=== PATIENT | female | born 1960 | race African-American/Black ===

== ENCOUNTER 2017-06-27 08:33 | Emergency (ER) | payer OTHER ==
[~2017-06-27] VITALS: Ht 172.7 cm; Wt 127.0 kg
[~2017-06-27 08:33] MED LIST: AZEL137S6; CALCCAP7; CARI-277; CARI-316 PO; CETI10CH3; CYAN100022; FLUT0.0531; GUAI600T23; HYDRCRY2; LISI40TA; MELO1TAB56; TRIA25CA; [UNRECOGNIZED DRUG - CODE] PO
[2017-06-27 09:51] VITALS: BP 138/88
[2017-06-27 10:13] LABS: Basophils # (auto) 0.1 uL; Basophils % (auto) 1.2 % (0.0-2.0); Eosinophils # (auto) 0.2 uL; Eosinophils % (auto) 3.3 % (0.0-7.0); Hematocrit 35.3 % (36.0-46.0); Hemoglobin 11.7 g/dL (12.2-16.2); Lymphocytes # (auto) 2.2 uL; Lymphocytes % (auto) 37.7 % (10.0-50.0); Mean Corpuscular Volume 93.9 fL (80.0-100.0); Monocytes # (auto) 0.4 uL; Monocytes % (auto) 7.2 % (0.0-12.0); Neutrophils # (auto) 2.9 uL; Neutrophils % (auto) 50.6 % (37.0-80.0); Platelet Count (auto) 315 10^3/uL (140-450); Red Blood Cells 3.76 10^6/uL (4.0-5.20); Red Cell Distribution Width 15.2 % (11.8-14.3); White Blood Cell 5.8 10^3/uL (4.4-10.8)
[2017-06-27 10:43] LABS: Alanine Aminotransferase 21 U/L (13-56); Albumin 3.9 g/dL (3.4-5.0); Alkaline Phosphatase 172 U/L (45-117); Anion Gap 8 (5-15); Aspartate Aminotransferase 23 U/L (15-37); BUN/Creatinine Ratio 14.4; Bilirubin, Total 0.3 mg/dL (0.2-1.0); Blood Urea Nitrogen 16 mg/dL (7-18); Calcium 8.7 mg/dL (8.5-10.1); Carbon Dioxide 23 mmol/L (21-32); Chloride 106 mmol/L (98-107); GFR African American 65 mL/min; GFR Non-African American 54 mL/min; Glucose 78 mg/dL (74-106); Magnesium 2.6 mg/dL (1.6-2.6); Potassium 4.6 mmol/L (3.5-5.1); Sodium 137 mmol/L (136-145); Total Protein 8.4 g/dL (6.4-8.2)
[2017-06-27 11:44] LABS: Urine Bacteria FEW /hpf (None Seen); Urine Blood Negative /uL (Negative); Urine Specific Gravity 1.009 (1.001-1.035); Urine WBC 3 /hpf (0 - 5)
[2017-06-27] MEDS ORDERED: PROMETHAZINE HCL 25 MG/ML 1ML IV ONE (12:00)
[2017-06-27] MEDS ORDERED: KETOROLAC TROMETH 30 MG/ML 1ML VIAL IV ONE (12:00)
== END 2017-06-27 14:17 | disposition home or self-care (01) ==
LOC: ER 08:33
DX: R07.89 Other chest pain (principal); N39.0 Urinary tract infection, site not specified; M54.12 Radiculopathy, cervical region; E78.5 Hyperlipidemia, unspecified; I10 Essential (primary) hypertension; Z98.51 Tubal ligation status; Z88.1 Allergy status to other antibiotic agents
CPT/HCPCS: 36415; 71046; 72125; 80053; 81001; 81002; 83735; 83880; 84484; 85025; 93005; 94761; 96374; 96375; 99285; J1885; J2550

== ENCOUNTER 2017-11-05 13:01 | Inpatient (IN) | payer OTHER ==
[~2017-11-05] VITALS: Ht 172.7 cm; Wt 134.3 kg
[2017-11-05] MEDS ORDERED: CLINDAMYCIN 600MG IV 50 ML IV ONE (13:45)
[2017-11-05] MEDS ORDERED: ONDANSETRON HCL 4 MG/2 ML VIAL IV ONE (14:45)
[2017-11-05] MEDS ORDERED: MORPHINE SULF INJ 2 MG/ML SYRINGE 1ML IV ONE (14:45)
[2017-11-05] MEDS: SODIUM CHLORIDE 0.9% 1,000 ML IV SCH (16:50)
[2017-11-05 16:52] LABS: Basophils # (auto) 0 uL; Basophils % (auto) 0.4 % (0.0-2.0); Eosinophils # (auto) 0.1 uL; Eosinophils % (auto) 1.4 % (0.0-7.0); Hematocrit 33.9 % (36.0-46.0); Hemoglobin 11.1 g/dL (12.2-16.2); Lymphocytes # (auto) 1.4 uL; Lymphocytes % (auto) 16.3 % (10.0-50.0); Mean Corpuscular Hemoglobin 30.3 pg (28.0-32.0); Mean Corpuscular Hgb Conc. 32.9 g/dL (32.0-36.0); Monocytes # (auto) 0.5 uL; Monocytes % (auto) 6.2 % (0.0-12.0); Neutrophils # (auto) 6.5 uL; Neutrophils % (auto) 75.7 % (37.0-80.0); Platelet Count (auto) 263 10^3/uL (140-450); Red Blood Cells 3.68 10^6/uL (4.0-5.20); Red Cell Distribution Width 14.2 % (11.8-14.3); White Blood Cell 8.6 10^3/uL (4.4-10.8)
[2017-11-05 16:58] LABS: Albumin 3.3 g/dL (3.4-5.0); BUN/Creatinine Ratio 15.1; Bilirubin, Total 0.3 mg/dL (0.2-1.0); Calcium 8.8 mg/dL (8.5-10.1); Total Protein 7.9 g/dL (6.4-8.2)
[2017-11-05] MEDS ORDERED: ACETAMINOPHEN 500 MG TAB PO PRN (17:00)
[2017-11-05] MEDS ORDERED: LACTULOSE 20Gm/30ML SOLN PO PRN (17:00)
[2017-11-05] MEDS ORDERED: VANCOMYCIN PER PHARMACY 0 MG IV SCH (17:00)
[2017-11-05] MEDS ORDERED: NITROGLYCERIN 0.4 MG SL TAB SL PRN (17:00)
[2017-11-05] MEDS ORDERED: MORPHINE SULF INJ 2 MG/ML SYRINGE 1ML IV PRN ×2 (17:00)
[2017-11-05] MEDS ORDERED: VANCOMYCIN 1GM/250ML 250 ML IV ONE (17:00)
[2017-11-05] MEDS ORDERED: PROMETHAZINE HCL 25 MG/ML 1ML IV PRN (17:00)
[2017-11-05] MEDS ORDERED: TEMAZEPAM 15 MG CAP PO PRN (17:00)
[2017-11-05] MEDS ORDERED: LORazepam 0.5 MG TAB PO PRN (17:00)
[2017-11-05] MEDS ORDERED: ENOXAPARIN SOD 40 MG/0.4 ML SYRINGE SC SCH (17:10)
[2017-11-05] MEDS: PANTOPRAZOLE 40 MG TAB PO SCH (17:44)
[2017-11-05] MEDS ORDERED: LEVOFLOXACIN 500MG 100 ML IV ONE (18:15)
[2017-11-05 18:30] VITALS: BP 135/79
[2017-11-05] MEDS ORDERED: DEXTROSE (50%) 50ML SYRG IV PRN (19:00)
[2017-11-05] MEDS: HYDROcodone-ACET 5/325MG TAB PO PRN (20:51)
[2017-11-05 22:00] VITALS: BP 135/79
[2017-11-05] MEDS ORDERED: CYAN1TAB14 PO (23:10)
[2017-11-05] MEDS ORDERED: VENL75TA PO (23:10)
[2017-11-05] MEDS ORDERED: MONT5CHW17 PO (23:10)
[2017-11-05] MEDS ORDERED: ESZO3TAB53 PO (23:10)
[2017-11-05] MEDS ORDERED: GUAI600T23 PO (23:10)
[2017-11-05] MEDS ORDERED: BLAC20TA PO (23:10)
[2017-11-05] MEDS ORDERED: CHOL200021 PO (23:10)
[2017-11-05] MEDS ORDERED: CETI1TAB36 PO (23:10)
[2017-11-05] MEDS ORDERED: TRAZ-181 PO (23:10)
[2017-11-05] MEDS ORDERED: ATE50T PO (23:10)
[2017-11-05] MEDS ORDERED: FURO20TA3 PO (23:10)
[2017-11-05] MEDS ORDERED: ASPI-231 PO (23:10)
[2017-11-05] MEDS ORDERED: ALBUAER3 IN (23:10)
[2017-11-05] MEDS ORDERED: LISI40TA PO (23:10)
[2017-11-05] MEDS ORDERED: OMEG100078 PO (23:10)
[2017-11-05] MEDS: ACCU-CHEK COMFORT CURVE STRIP VI SCH (23:25)
[2017-11-06] MEDS: VANCOMYCIN 1GM/250ML 250 ML IV SCH ×3 (00:27→17:34)
[2017-11-06] MEDS: SODIUM CHLORIDE 0.9% 1,000 ML IV SCH ×2 (03:42→15:26)
[2017-11-06 05:00] VITALS: BP 137/75
[2017-11-06 06:25] LABS: Basophils # (auto) 0 uL; Basophils % (auto) 0.3 % (0.0-2.0); Eosinophils # (auto) 0.1 uL; Eosinophils % (auto) 2.2 % (0.0-7.0); Hematocrit 32.6 % (36.0-46.0); Hemoglobin 11.1 g/dL (12.2-16.2); Lymphocytes # (auto) 1.2 uL; Lymphocytes % (auto) 20.9 % (10.0-50.0); Mean Corpuscular Hemoglobin 31.2 pg (28.0-32.0); Mean Corpuscular Hgb Conc. 33.9 g/dL (32.0-36.0); Mean Corpuscular Volume 91.9 fL (80.0-100.0); Monocytes # (auto) 0.6 uL; Monocytes % (auto) 10.9 % (0.0-12.0); Neutrophils # (auto) 3.8 uL; Neutrophils % (auto) 65.7 % (37.0-80.0); Nucleated Red Blood Cells % 0.1 %; Platelet Count (auto) 252 10^3/uL (140-450); Red Blood Cells 3.55 10^6/uL (4.0-5.20); Red Cell Distribution Width 13.8 % (11.8-14.3); White Blood Cell 5.8 10^3/uL (4.4-10.8)
[2017-11-06] MEDS: ACCU-CHEK COMFORT CURVE STRIP VI SCH ×3 (06:25→18:00)
[2017-11-06 08:00] VITALS: BP 135/74
[2017-11-06] MEDS: HYDROcodone-ACET 5/325MG TAB PO PRN (09:25)
[2017-11-06] MEDS ORDERED: ENOXAPARIN SOD 40 MG/0.4 ML SYRINGE SC SCH (10:00)
[2017-11-06] MEDS ORDERED: LEVOFLOXACIN 500MG 100 ML IV SCH (10:00)
[2017-11-06] MEDS: PANTOPRAZOLE 40 MG TAB PO SCH (10:46)
[2017-11-06 12:00] VITALS: BP 139/76
[2017-11-06 17:00] VITALS: BP 146/104
[2017-11-06] MEDS ORDERED: CLIN1CAP4 PO (17:31)
[2017-11-06 18:02] VITALS: BP 146/104
[2017-11-06 18:17] VITALS: BP 146/104
== END 2017-11-06 19:02 | disposition home health service (06) | DRG 603 ==
LOC: ER 13:01 → TELE 13:02 → TELE-WESTW 19:30
PROVIDERS: ADMIT Internal Medicine; ATTEND Internal Medicine
DX: L03.116 Cellulitis of left lower limb (principal); Z68.42 Body mass index [BMI] 45.0-49.9, adult; M10.9 Gout, unspecified; I10 Essential (primary) hypertension; J45.909 Unspecified asthma, uncomplicated; E66.01 Morbid (severe) obesity due to excess calories; M65.9 Synovitis and tenosynovitis, unspecified; R73.9 Hyperglycemia, unspecified; D64.9 Anemia, unspecified; J44.9 Chronic obstructive pulmonary disease, unspecified; F32.9 Major depressive disorder, single episode, unspecified; M19.90 Unspecified osteoarthritis, unspecified site; E78.5 Hyperlipidemia, unspecified; Z82.49 Family history of ischemic heart disease and other diseases of the circulatory system; Z88.1 Allergy status to other antibiotic agents; Z79.899 Other long term (current) drug therapy; Z98.51 Tubal ligation status
CPT/HCPCS: 36415; 73700; 80053; 80061; 80202; 82565; 82962; 83036; 85025; 85652; 87040; 93971; 94761; 96361; 96365; 96367; 96368; 96372; 96375; J1956; J2405; J3490

== ENCOUNTER 2018-04-25 21:52 | Emergency (ER) | payer OTHER ==
[~2018-04-25] VITALS: Ht 170.2 cm; Wt 117.9 kg
[~2018-04-25 21:52] MED LIST changes: +ALBUAER3 IN; +ASPI-231 PO; +ATE50T PO; -CALCCAP7; -CARI-277; -CARI-316 PO; -CETI10CH3; +CETI1TAB36 PO; +CHOL200021 PO; +CLIN1CAP4 PO; -CYAN100022; +CYAN1TAB14 PO; +ESZO3TAB53 PO; +FURO20TA3 PO; -GUAI600T23; +GUAI600T23 PO; -HYDRCRY2; -LISI40TA; +LISI40TA PO; -MELO1TAB56; +MONT5CHW17 PO; +OMEG100078 PO; +TRAZ-181 PO; -TRIA25CA; +VENL75TA PO; -[UNRECOGNIZED DRUG - CODE] PO
[2018-04-25 22:05] VITALS: BP 150/76
[2018-04-25] MEDS ORDERED: KETOROLAC TROMETH 60MG/2ML VIAL IM ONE (23:30)
[2018-04-25] MEDS ORDERED: methylPREDNISolone SOD SUCC 125 MG/2 ML VL IM ONE (23:30)
== END 2018-04-26 00:22 | disposition home or self-care (01) ==
LOC: ER 21:52 → EDBD 21:52 → ER 04-26 00:22
DX: M25.561 Pain in right knee (principal); M25.562 Pain in left knee; J45.909 Unspecified asthma, uncomplicated; I10 Essential (primary) hypertension; E78.5 Hyperlipidemia, unspecified; Z98.51 Tubal ligation status; Z79.899 Other long term (current) drug therapy; Z88.1 Allergy status to other antibiotic agents; W06.XXXA Fall from bed, initial encounter; Y93.89 Activity, other specified; Y99.8 Other external cause status; Y92.89 Other specified places as the place of occurrence of the external cause
CPT/HCPCS: 73562; 96372; 99283; J1885; J2930

== ENCOUNTER 2022-03-26 16:40 | Inpatient (IN) | payer OTHER ==
[~2022-03-26] VITALS: Ht 172.7 cm; Wt 135.0 kg
[~2022-03-26 16:40] MED LIST changes: -ASPI-231 PO; +ASPI1TAB20 PO; -CLIN1CAP4 PO; +CLIN300C8 PO; -LISI40TA PO; +LISI40TA11 PO; -MONT5CHW17 PO; +MONT5CHW23 PO; +VENL1TAB99 PO; -VENL75TA PO
[2022-03-26] MEDS ORDERED: LORazepam 0.5 MG TAB PO ONE (21:00)
[2022-03-26 22:16] LABS: Basophils # (auto) 0.1 10 ^3/uL (0-0.2); Basophils % (auto) 0.8 % (0.0-2.0); Eosinophils # (auto) 0.3 10 ^3/uL (0-0.8); Eosinophils % (auto) 4.6 % (0.0-7.0); Hematocrit 38.5 % (36.0-46.0); Hemoglobin 12.9 g/dL (12.2-16.2); Lymphocytes # (auto) 2.9 10 ^3/uL (0.4-5.4); Mean Corpuscular Hgb Conc. 33.5 g/dL (32.0-36.0); Mean Corpuscular Volume 95.6 fL (80.0-100.0); Monocytes # (auto) 0.5 10 ^3/uL (0-1.3); Monocytes % (auto) 6.8 % (0.0-12.0); Neutrophils # (auto) 3.1 10 ^3/uL (1.6-8.6); Neutrophils % (auto) 44.8 % (37.0-80.0); Nucleated Red Blood Cells % 0.1 %; Red Blood Cells 4.03 10^6/uL (4.0-5.20); Red Cell Distribution Width 13.5 % (11.8-14.3); White Blood Cell 6.8 10^3/uL (4.4-10.8)
[2022-03-26 22:31] LABS: Albumin 4.2 g/dL (3.4-5.0); Anion Gap 10 (5-15); Aspartate Aminotransferase 24 U/L (15-37); BUN/Creatinine Ratio 18.5; Blood Urea Nitrogen 17 mg/dL (7-18); Calcium 9.5 mg/dL (8.5-10.1); Carbon Dioxide 23 mmol/L (21-32); Chloride 109 mmol/L (98-107); GFR African American 80 mL/min; GFR Non-African American 66 mL/min; Glucose 98 mg/dL (74-106); Sodium 142 mmol/L (136-145)
[2022-03-26 22:34] LABS: Alanine Aminotransferase 25 U/L (13-56); Alkaline Phosphatase 139 U/L (45-117); Bilirubin, Total 0.3 mg/dL (0.2-1.0); Total Protein 8.2 g/dL (6.4-8.2)
[2022-03-26 23:30] VITALS: BP 141/77
[2022-03-26] MEDS ORDERED: TEMAZEPAM 15 MG CAP PO PRN (23:30)
[2022-03-26] MEDS ORDERED: ACETAMINOPHEN 325 MG TAB PO PRN (23:30)
[2022-03-26] MEDS ORDERED: MORPHINE SULFATE INJ 2 MG/ml SYRG IV PRN (23:30)
[2022-03-26] MEDS ORDERED: ALBUTEROL SULF 2.5 MG/0.5ML(0.5%) NEB SOLN NEB PRN (23:30)
[2022-03-26] MEDS ORDERED: ONDANSETRON HCL 4 MG/2 ML VIAL IV PRN (23:30)
[2022-03-26] MEDS ORDERED: NITROGLYCERIN 0.4 MG SL TAB SL PRN (23:30)
[2022-03-27] VITALS (7 sets, daily range): BP systolic 162–195; BP diastolic 74–93
[2022-03-27 06:08] LABS: Basophils # (auto) 0.1 10 ^3/uL (0-0.2); Eosinophils # (auto) 0.3 10 ^3/uL (0-0.8); Eosinophils % (auto) 4.9 % (0.0-7.0); Hematocrit 35.4 % (36.0-46.0); Hemoglobin 11.9 g/dL (12.2-16.2); Lymphocytes # (auto) 2.2 10 ^3/uL (0.4-5.4); Lymphocytes % (auto) 40.5 % (10.0-50.0); Mean Corpuscular Hemoglobin 31.8 pg (28.0-32.0); Mean Corpuscular Hgb Conc. 33.5 g/dL (32.0-36.0); Mean Corpuscular Volume 94.8 fL (80.0-100.0); Monocytes # (auto) 0.4 10 ^3/uL (0-1.3); Neutrophils # (auto) 2.5 10 ^3/uL (1.6-8.6); Neutrophils % (auto) 45.6 % (37.0-80.0); Nucleated Red Blood Cells % 0.1 %; Red Blood Cells 3.73 10^6/uL (4.0-5.20); Red Cell Distribution Width 13.7 % (11.8-14.3); White Blood Cell 5.4 10^3/uL (4.4-10.8)
[2022-03-27 06:27] LABS: Potassium 3.7 mmol/L (3.5-5.1)
[2022-03-27 06:32] LABS: Calcium 9.2 mg/dL (8.5-10.1)
[2022-03-27] MEDS: ENOXAPARIN SOD 40 MG/0.4 ML SYRINGE SC SCH (09:37)
[2022-03-27] MEDS: ASPirin 81 mg TAB PO SCH (09:37)
[2022-03-27] MEDS: ATENOLOL 50 MG TAB PO SCH (09:38)
[2022-03-27] MEDS ORDERED: FUROSEMIDE 20 MG TAB PO SCH (10:00)
[2022-03-27] MEDS ORDERED: LISINOPRIL 20 MG TAB PO SCH (10:00)
[2022-03-27] MEDS ORDERED: CELE100C82 PO (10:28)
[2022-03-27] MEDS ORDERED: HYDR-4795 PO (10:28)
[2022-03-27] MEDS ORDERED: ESCI-34 PO (10:28)
[2022-03-27] MEDS ORDERED: BUSP10TA90 PO (10:28)
[2022-03-27] MEDS ORDERED: ALLO100T PO (10:28)
[2022-03-27] MEDS ORDERED: amLODIPine BESYLATE 5 MG TAB PO ONE (16:15)
[2022-03-27] MEDS ORDERED: amLODIPine BESYLATE 5 MG TAB PO SCH (16:15)
[2022-03-27] MEDS ORDERED: AMLO-496 PO (17:06)
[2022-03-27] MEDS ORDERED: LISINOPRIL 20 MG TAB PO ONE (19:00)
[2022-03-27] MEDS: hydrALAZINE HCL 20 MG/ML VL IV PRN (20:05)
[2022-03-27] MEDS ORDERED: LABETALOL HCL 5 MG/ML 4ML SYRINGE IV PRN (21:30)
[2022-03-27] MEDS: VENLAFAXINE HCL 37.5MG TABLET PO SCH (22:47)
[2022-03-28 05:00] VITALS: BP 147/72
[2022-03-28] MEDS ORDERED: diphenhdrAMINE HCL 50 MG/1 ML VL IV ONE (07:15)
[2022-03-28] MEDS ORDERED: methylPREDNISolone SOD SUCC 125 MG/2 ML VL IV ONE ×2 (07:15→11:45)
[2022-03-28 08:48] VITALS: BP 180/91
[2022-03-28] MEDS ORDERED: LISINOPRIL 20 MG TAB PO SCH (10:00)
[2022-03-28] MEDS: ASPirin 81 mg TAB PO SCH (10:15)
[2022-03-28] MEDS: ENOXAPARIN SOD 40 MG/0.4 ML SYRINGE SC SCH (10:15)
[2022-03-28] MEDS: ATENOLOL 50 MG TAB PO SCH (10:15)
[2022-03-28] MEDS: hydrALAZINE HCL 25 MG TAB PO SCH ×3 (10:16→22:03)
[2022-03-28 12:31] VITALS: BP 140/82
[2022-03-28] MEDS ORDERED: HYDR25TA87 PO (16:11)
[2022-03-28] MEDS ORDERED: METH4PAK PO (16:13)
[2022-03-28 16:34] VITALS: BP 189/90
[2022-03-28] MEDS: hydrALAZINE HCL 20 MG/ML VL IV PRN (17:54)
[2022-03-28 22:00] VITALS: BP 185/81
[2022-03-28] MEDS: VENLAFAXINE HCL 37.5MG TABLET PO SCH (22:04)
[2022-03-29 05:00] VITALS: BP 155/79
[2022-03-29] MEDS: hydrALAZINE HCL 25 MG TAB PO SCH (05:23)
[2022-03-29 08:55] VITALS: BP 143/77
[2022-03-29] MEDS: ENOXAPARIN SOD 40 MG/0.4 ML SYRINGE SC SCH (09:38)
[2022-03-29] MEDS: ATENOLOL 50 MG TAB PO SCH (09:38)
[2022-03-29] MEDS: ASPirin 81 mg TAB PO SCH (09:38)
[2022-03-29 10:48] VITALS: BP 143/77
== END 2022-03-29 11:29 | disposition home health service (06) | DRG 305 ==
LOC: EDUNIT# 16:40 → EDBD 16:40 → ER 16:40 → TELE 23:29 → TELE-WESTW 03-27 08:08
PROVIDERS: ADMIT Nurse Practitioner; ATTEND Internal Medicine
DX: I16.9 Hypertensive crisis, unspecified (principal); Z68.42 Body mass index [BMI] 45.0-49.9, adult; F41.1 Generalized anxiety disorder; E66.9 Obesity, unspecified; E78.5 Hyperlipidemia, unspecified; F43.22 Adjustment disorder with anxiety; J45.909 Unspecified asthma, uncomplicated; M10.9 Gout, unspecified; F43.20 Adjustment disorder, unspecified; M15.9 Polyosteoarthritis, unspecified; R77.8 Other specified abnormalities of plasma proteins; Z20.822 Contact with and (suspected) exposure to COVID-19; I10 Essential (primary) hypertension; F32.9 Major depressive disorder, single episode, unspecified; Z63.4 Disappearance and death of family member; Z88.1 Allergy status to other antibiotic agents; Z82.49 Family history of ischemic heart disease and other diseases of the circulatory system; T78.3XXA Angioneurotic edema, initial encounter
CPT/HCPCS: 36415; 71045; 80048; 80053; 84484; 85025; 87426; 93005; 93306; G0378

== ENCOUNTER 2022-11-21 17:20 | Emergency (ER) | payer OTHER ==
[~2022-11-21] VITALS: Ht 172.7 cm; Wt 136.1 kg
[~2022-11-21 17:20] MED LIST changes: +ALLO100T PO; +AMLO1TAB23 PO; -AZEL137S6; +BUSP10TA90 PO; -CETI1TAB36 PO; -CLIN300C8 PO; +ESCI1TAB37 PO; -ESZO3TAB53 PO; +ESZO3TAB54 PO; -FLUT0.0531; -FURO20TA3 PO; -GUAI600T23 PO; +HYDR-4795 PO; +HYDR25TA87 PO; -LISI40TA11 PO; +METH4PAK PO; -MONT5CHW23 PO; -OMEG100078 PO; -TRAZ-181 PO
[2022-11-21] MEDS ORDERED: PERCOT PO (18:53)
[2022-11-21] MEDS ORDERED: KETOROLAC TROMETH 30 MG/ML 1ML VIAL IM ONE (19:00)
[2022-11-21 19:04] VITALS: BP 168/66
== END 2022-11-21 19:06 | disposition home or self-care (01) ==
LOC: ER 17:20
DX: S92.514A Nondisplaced fracture of proximal phalanx of right lesser toe(s), initial encounter for closed fracture (principal); J45.909 Unspecified asthma, uncomplicated; I10 Essential (primary) hypertension; Z88.1 Allergy status to other antibiotic agents; X50.1XXA Overexertion from prolonged static or awkward postures, initial encounter; Y93.89 Activity, other specified; Y92.89 Other specified places as the place of occurrence of the external cause; Y99.8 Other external cause status
CPT/HCPCS: 73630; 96372; 99283; J1885

== ENCOUNTER → 2022-12-21 | Emergency (ER) | payer OTHER ==
[~2022-12-21] VITALS: Ht 172.7 cm; Wt 131.4 kg
[~2022-12-21] MED LIST changes: +PERCOT PO
[2022-12-21 03:30] VITALS: BP 136/68; PULSE 79; RESP 16; O2SAT 96
[2022-12-21 04:27] LABS: Basophils # (auto) 0.1 10 ^3/uL (0-0.2); Basophils % (auto) 1.4 % (0.0-2.0); Eosinophils # (auto) 0.3 10 ^3/uL (0-0.8); Eosinophils % (auto) 3.4 % (0.0-7.0); Hematocrit 36.2 % (36.0-46.0); Hemoglobin 12.1 g/dL (12.2-16.2); Lymphocytes % (auto) 34.2 % (10.0-50.0); Mean Corpuscular Hemoglobin 31.7 pg (28.0-32.0); Mean Corpuscular Hgb Conc. 33.6 g/dL (32.0-36.0); Mean Corpuscular Volume 94.3 fL (80.0-100.0); Monocytes # (auto) 0.6 10 ^3/uL (0-1.3); Monocytes % (auto) 6.6 % (0.0-12.0); Neutrophils # (auto) 4.7 10 ^3/uL (1.6-8.6); Neutrophils % (auto) 54.4 % (37.0-80.0); Nucleated Red Blood Cells % 0.1 %; Red Blood Cells 3.84 10^6/uL (4.0-5.20); Red Cell Distribution Width 14.2 % (11.8-14.3); White Blood Cell 8.7 10^3/uL (4.4-10.8)
[2022-12-21 04:48] LABS: Albumin 3.9 g/dL (3.4-5.0); Calcium 9.1 mg/dL (8.5-10.1); Potassium 3.7 mmol/L (3.5-5.1)
[2022-12-21 04:51] LABS: BUN/Creatinine Ratio 16.3 (10.0-20.0); Bilirubin, Total 0.2 mg/dL (0.2-1.0); Total Protein 8.2 g/dL (6.4-8.2)
== END | disposition left against medical advice (07) ==
LOC: ER 03:24
DX: R51.9 Headache, unspecified (principal); M54.2 Cervicalgia; Z53.21 Procedure and treatment not carried out due to patient leaving prior to being seen by health care provider
CPT/HCPCS: 36415; 80053; 85025

== ENCOUNTER 2023-03-26 16:04 | Emergency (ER) | payer OTHER | END 2023-03-26 16:53 | disposition left against medical advice (07) | LOC: ER 16:04 | DX: R10.9 Unspecified abdominal pain (principal); Z53.21 Procedure and treatment not carried out due to patient leaving prior to being seen by health care provider ==

== ENCOUNTER 2023-12-27 09:21 | Emergency (ER) | payer OTHER ==
[~2023-12-27] VITALS: Ht 172.7 cm; Wt 129.5 kg
[2023-12-27 09:47] VITALS: BP 155/78; PULSE 88; RESP 18; TEMP 98.8; O2SAT 96
[2023-12-27] MEDS: CLINDAMYCIN 900MG IV 50 ML IV ONE (12:03)
[2023-12-27] MEDS ORDERED: CLIN-203 PO (13:17)
== END 2023-12-27 13:18 | disposition home or self-care (01) ==
LOC: ER 09:21
DX: L03.115 Cellulitis of right lower limb (principal); I10 Essential (primary) hypertension; Z98.51 Tubal ligation status; Z88.1 Allergy status to other antibiotic agents
CPT/HCPCS: 93971; 96365; 99284; J3490